=== PATIENT | male | born 1965 | race Caucasian/White ===

== ENCOUNTER → 2020-10-31 | Outpatient (CLI) | payer BC | END | disposition home or self-care (01) | LOC: SHCH 08:29 | PROVIDERS: ATTEND Internal Medicine Cardiovascular Disease | DX: I11.9 Hypertensive heart disease without heart failure (principal); I34.0 Nonrheumatic mitral (valve) insufficiency; Z95.2 Presence of prosthetic heart valve | CPT/HCPCS: 93306; 93356 ==

== ENCOUNTER → 2022-03-15 | Outpatient (CLI) | payer BC | END | disposition home or self-care (01) | LOC: SHCH 07:52 | PROVIDERS: ATTEND Internal Medicine Cardiovascular Disease | DX: I11.9 Hypertensive heart disease without heart failure (principal); I25.3 Aneurysm of heart; I48.0 Paroxysmal atrial fibrillation; E78.5 Hyperlipidemia, unspecified; Z95.2 Presence of prosthetic heart valve | CPT/HCPCS: 93306 ==

== ENCOUNTER → 2023-07-28 | Outpatient (CLI) | payer BC | END | disposition home or self-care (01) | LOC: SHCH 08:07 | PROVIDERS: ATTEND Internal Medicine Cardiovascular Disease | DX: I11.9 Hypertensive heart disease without heart failure (principal); E78.5 Hyperlipidemia, unspecified; Z95.2 Presence of prosthetic heart valve | CPT/HCPCS: 93306 ==

== ENCOUNTER → 2024-08-24 | Outpatient (CLI) | payer BC ==
--- NOTE | 2024-08-25 08:02 | HMCSR ---
APPROVED REPORT EXAM: Two-dimensional and M-mode echocardiogram with Doppler and color Doppler. INDICATION ICD: I10.0 Essential (primary) Hypertension Surgery/Intervention Valve Replacement: Mechanical Type: Aortic 2D Dimensions RVDd5.2 cmLVEF(%)55.0 (>50%)LVED Vol(simp.)146.0 mL IVSd1.1 (0.7-1.1cm)FS(%)32 %LVES Vol(simp.)60.0 mL LVDd5.5 (3.8-5.6cm)Ao Root(2D)3.2 (2.0-3.7cm)LVEF(%, simp.)59 % PWd1.0 (0.7-1.1cm)IVC diam1.4 cmLA ESV INDEX (BP)38.30 mL/m2 LVDs3.7 (2.5-4.0cm) M-Mode Dimensions EPSS0.5 cm Aortic Valve AoV Vmax1.9 m/[place]ixa Peak GR14.6 mmHgLVOT Vmax1.0 m/s AoV VTI0.3 mAo Mean GR8.3 mmHgLVOT VTI0.20 m Mitral Valve MV E Vmax80.4 cm/sDECEL Aazw269 msMV Peak GR2 mmHg MV A Vmax64.3 cm/sP 1/2 T48 msMV Mean GR1 mmHg E/A ratio1.3MVA (PHT)4.6 cm2 MR Max PG47 mmHg TDI E/E' Jvwtgr36.0E/E' Lateral8.6 Pulmonary Valve PV Vmax1.2 m/sPV VTI0.16 mPV Mean GR3 mmHg PV Peak GR5.7 mmHgPI End Fide. Krunal 1.4 cm/s Tricuspid Valve TR Vmax3.0 m/sRAP (EST) 3 tzBmOMFC16.8 mmHg TR Peak GR35.8 mmHg Left Ventricle Left ventricular cavity size is normal. Paradoxical septal motion consistent with post-operative stat e. There is borderline left ventricular hypertrophy. LVEF is 55%. No left ventricle thrombus noted on this study. Grade 2 diastolic dysfunction. Right Ventricle The right ventricle is moderately dilated. The right ventricular systolic function is normal. Atria The left atrium is mildly dilated. The right atrium is moderately dilated. Aortic Valve Mechanical aortic valve is present. Prosthetic aortic valve is normal in appearance and well seated. Trace aortic regurgitation. AV Dimensionless Index is 0.59 Mitral Valve Mitral valve leaflets are mildly sclerotic but open well. Mitral regurgitation is trace. There is no mitral valve stenosis. Tricuspid Valve The tricuspid valve leaflets appear normal. There is mild tricuspid regurgitation. Right ventricular systolic pressure is estimated at 30-40 mmHg. Pulmonic Valve The pulmonic valve leaflets are thin and pliable; valve motion is normal. There is trace pulmonic may vular regurgitation. Great Vessels The aortic root is normal in size. The IVC is normal in size and collapses >50% with inspiration. Pericardium No pericardial effusion. Other Information Quality : Technically Limited Technically limited study due to body habitus. Conclusion Left ventricular cavity size is normal. There is borderline left ventricular hypertrophy. LVEF is 55%. Grade 2 diastolic dysfunction. Paradoxical septal motion consistent with post-operative state. The right ventricle is moderately dilated. The left atrium is mildly dilated. The right atrium is moderately dilated. Mechanical aortic valve is present. Prosthetic aortic valve is normal in appearance and well seated. Trace aortic regurgitation. Mitral valve leaflets are mildly sclerotic but open well. Mitral regurgitation is trace. There is mild tricuspid regurgitation. Right ventricular systolic pressure is estimated at 30-40 mmHg. The pulmonic valve leaflets are thin and pliable; valve motion is normal. There is trace pulmonic valvular regurgitation. The aortic root is normal in size. The IVC is normal in size and collapses >50% with inspiration. No pericardial effusion.
== END | disposition home or self-care (01) ==
LOC: SHCH 14:56
PROVIDERS: ATTEND Internal Medicine Cardiovascular Disease
DX: I08.1 Rheumatic disorders of both mitral and tricuspid valves (principal); I11.9 Hypertensive heart disease without heart failure; Z95.2 Presence of prosthetic heart valve
CPT/HCPCS: 93306

== ENCOUNTER 2025-06-28 05:57 | Day surgery (SDC) | payer BC ==
[2025-06-24 13:43] VITALS: BP 120/67; PULSE 70; RESP 17; TEMP 97.9
[2025-06-24 13:45] LABS: IMMATURE GRANULOCYTE ABSOLUTE 0.04 K/uL (0-1); NUCLEATED RED BLOOD CELLS 0.0 % (0.0-0.19); PLATELET COUNT (AUTO) 241 K/uL (130-400); RED BLOOD CELL COUNT(AUTO) 4.65 MIL/uL (4.50-6.20); RED CELL DISTRIBUTION WIDTH 14.3 % (11.0-15.5); WHITE BLOOD COUNT (AUTO) 8.1 K/uL (4.8-10.8)
[2025-06-24 13:51] LABS: CREATININE 1.2 mg/dL (0.5-1.3); GLOMERULAR FILTR. RATE CALC 68.0 mL/min (>90); GLUCOSE,RANDOM 152.0 mg/dL (70-105); SODIUM SERUM 138.0 mmol/L (136-145); UREA NITROGEN, BLOOD 18.0 mg/dL (7-18)
--- NOTE | 2025-06-24 13:51 | EKG ---
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
--- NOTE | 2025-06-24 14:00 | NUR ---
RE: EKG REPORTED EKG RESULTS TO DR SHARMA, NO NEW ORDERS RECEIVED.
[2025-06-24 14:16] LABS: INR 3.65 (0.85-1.15)
--- NOTE | 2025-06-24 15:44 | NUR ---
RE: INR/WARFARIN REPORTED PT/INR TO DR SHARMA. RECEIVED ORDERS TO HAVE PATIENT HOLD WARFARIN ON FRIDAY AND WILL RECHECK LABS ON DAY OF PROCEDURE. CALLED PATIENT AND INSTRUCTED HIM TO HOLD HIS WARFARIN ON FRIDAY (LAST DOSE FRIDAY). PATIENT VERBALIZED UNDERSTANDING.
[2025-06-28] VITALS (20 sets, daily range): BP systolic 106–127; BP diastolic 62–78; PULSE 71–110; RESP 11–20; TEMP 97.2–97.9
[~2025-06-28] VITALS: Ht 177.8 cm; Wt 115.9 kg
[~2025-06-28 05:57] MED LIST: 0.9%NACL 1000ML 1,000 ML IV SCH
[2025-06-28] MEDS ORDERED: 0.9%NACL 1000ML 1,000 ML IV SCH (06:30)
[2025-06-28] MEDS ORDERED: LIDOCAINE HCL 400MG/20ML VIAL ONE ×2 (07:12→07:15)
[2025-06-28] MEDS ORDERED: SODIUM BICARB 50MEQ 50ML VIAL 50 ML ONE (07:12)
[2025-06-28] MEDS ORDERED: MIDAZOLAM HCL 1 MG/ML 2ML VIAL ONE (07:13)
[2025-06-28] MEDS ORDERED: HEParin-NS 1,000 UNIT/500 ML 500 ML IV ONE (07:14)
[2025-06-28] MEDS ORDERED: HEParin-NS 1,000 UNIT/500 ML 0 ML IV ONE (07:14)
[2025-06-28] MEDS ORDERED: IOHEXOL 350 MG/ML 100ML INFUS..BTL IV ONE (07:16)
[2025-06-28] MEDS ORDERED: HEParin-NS 1,000 UNIT/500 ML 1,000 ML IV ONE (07:16)
[2025-06-28] MEDS ORDERED: NITROGLYCERIN 50MG VIAL ONE (07:16)
[2025-06-28 07:23] LABS: INR 1.82 (0.85-1.15)
--- NOTE | 2025-06-28 07:59 | NUR ---
PT INR relayed to Walker and CL Nurse, Adarsh. PIV witnessed patent with good blood return at bedside with CL Nurse, Adarsh. To CL at 07:28 am.
[2025-06-28] MEDS ORDERED: NEOSTIGMINE METHYLSULFATE 1MG/ML IV ONE (09:51)
[2025-06-28] MEDS ORDERED: GLYCOPYRROLATE 0.2 MG/ML 5 ML VIAL ONE (09:51)
--- NOTE | 2025-06-28 11:55 | NUR ---
Right Femoral site clean, dry and intact. No sign of bleeding, bruising or hematoma. Instructed Patient and Family of POC, precautions and expectations until discharge. Both voiced understanding in full.
--- NOTE | 2025-06-28 12:05 | NUR ---
Right Femoral site clean, dry and intact. No sign of bleeding, bruising or hematoma. Instructed Patient and Family of POC, precautions and expectations until discharge. Both voiced understanding in full. Patient tolerated fluids and Lunch without issue. Reported off in full to receiving Nurse, Isacc RICKETTS.
--- NOTE | 2025-06-28 12:34 | EKG ---
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
[2025-06-28] MEDS: ENOXAPARIN SODIUM 100 MG/1 ML SQ ONE (12:40)
--- NOTE | 2025-06-28 13:05 | NUR ---
BOTH AND SPOUSE GIVEN VERBAL AND WRITTEN DISCHARGE INSTRUCTIONS IV REMOVED SITE ASYMPTOMATIC PT TAKEN OUT VIA WHEELCHAIR SPOUSE DRIVING. PT GIVEN VERBAL AND WRITTEN INSTRUCTIONS ABOUT CHECKING INR AND TAKING 10MG COUMADIN TODAY
== END 2025-06-28 13:16 | disposition home or self-care (01) ==
LOC: DAH 05:57
PROVIDERS: ATTEND Internal Medicine Cardiovascular Disease
DX: I48.3 Typical atrial flutter (principal); I48.0 Paroxysmal atrial fibrillation; E78.5 Hyperlipidemia, unspecified; Z90.89 Acquired absence of other organs; Z82.49 Family history of ischemic heart disease and other diseases of the circulatory system; Z79.899 Other long term (current) drug therapy; Z98.890 Other specified postprocedural states
CPT/HCPCS: 80048; 85025; 85610 ×2; 85730; 36415 ×2; 93005 ×2; 93653; 82948 ×2; C1894 ×2; C1732 ×2; C1893; A4649 ×2; C1760 ×2; J3010 ×2; J3490 ×4; J1644 ×3; J2250; J2704; J2405; J1650; J2710; J2371; A4215; A4222; A4221; A4663; A4606; A4223 ×3; Q9967